=== PATIENT | male | born 1955 | race Hispanic/Latino ===

== ENCOUNTER 2017-04-02 13:03 | Emergency (ER) | payer OTHER ==
[2017-04-02 13:03] VITALS: BMI 23.5
[2017-04-02 13:15] VITALS: BP 127/89; PULSE 73; RESP 22; TEMP 98.2; O2SAT 98
--- NOTE | 2017-04-02 14:09 | ED PDOC ---
HPI: Psych/Substance Abuse Time Seen by Provider: 04/02/17 13:13 Chief Complaint (Nursing): Psychiatric Evaluation Chief Complaint (Provider): Leg pain, wants deotx from heroin ED Caveat: Acuity of Condition History Per: Patient History/Exam Limitations: no limitations Current Symptoms Are (Timing): Still Present Additional Complaint(s): Pt states he is also having pain in his legs. Pt states he was told he had a clot in his leg but left AMA. Pt states he did heroin yesterday and wants detox. On arrival to room patient states he wants to leave. Pt did not want screening exam. Past Medical History Reviewed: Historical Data, Nursing Documentation, Vital Signs Vital Signs: Last Vital Signs Temp 98.2 F 04/02/17 13:14 Pulse 73 04/02/17 13:14 Resp 22 04/02/17 13:14 BP 127/89 04/02/17 13:14 Pulse Ox 98 04/02/17 13:14 - Medical History PMH: Anxiety, Asthma, Parkinson's Disease Denies: Chronic Kidney Disease Comment Only: COPD (?) - Surgical History Surgical History: No Surg Hx - Family History Family History: States: Unknown Family Hx - Immunization History Hx Tetanus Toxoid Vaccination: No Hx Influenza Vaccination: No Hx Pneumococcal Vaccination: No - Home Medications Home Medications: Ambulatory Orders Medication Instructions Recorded Albuterol HFA [Ventolin HFA 90 1 puff IH Q6 PRN 12/07/16 mcg/actuation (8 g)] Carbidopa/Levodopa 1 each PO QID 12/07/16 [Carbidopa-Levodopa 10-100 Tab] Gabapentin [Neurontin] 300 mg PO TID 12/07/16 Meclizine HCl 50 mg PO BID 12/07/16 Mirtazapine [Remeron] 15 mg PO HS 12/07/16 Rotigotine [Neupro] 1 each TD DAILY 12/07/16 Selegiline HCl [Selegiline HCl] 5 mg PO BID 12/07/16 Tamsulosin HCl [Flomax] 0.4 mg PO DAILY 12/07/16 - Allergies Allergies/Adverse Reactions: Allergies Allergy/AdvReac Type Severity Reaction Status Date / Time No Known Allergies Allergy Verified 04/01/17 16:04 Review of Systems ROS Statement: Except As Marked, All Systems Reviewed And Found Negative Constitutional: Negative for: Fever, Chills Physical Exam - Reviewed Nursing Documentation Reviewed: Yes Vital Signs Reviewed: Yes - Physical Exam Appears: Positive for: Well, Non-toxic, No Acute Distress Head Exam: Positive for: ATRAUMATIC, NORMAL INSPECTION, NORMOCEPHALIC Skin: Positive for: Normal Color, Warm, DRY Eye Exam: Positive for: Normal appearance ENT: Positive for: Normal ENT Inspection Neck: Positive for: Normal Respiratory: Negative for: Accessory Muscle Use, Respiratory Distress Back: Positive for: Normal Inspection Extremity: Positive for: Normal ROM Neurologic/Psych: Positive for: Alert, Oriented - ECG O2 Sat by Pulse Oximetry: 98 Medical Decision Making Medical Decision Making: Discussed evaluation of DVT and getting US. Pt states he does not want to stay. I gave patient out-patient resources for detox and he states he does not want them. Pt than asks if he would walk around the hospital and collect money because he needs $30 to he can go to [facility] for detox. Disposition - Clinical Impression Clinical Impression: Heroin abuse, Leg pain - Patient ED Disposition Is Patient to be Admitted: No - Disposition Disposition: Left W/O Treatment Disposition Time: 14:12 Condition: STABLE
== END 2017-04-02 14:00 | disposition left against medical advice (07) ==
LOC: H.ER 13:03
DX: F11.10 Opioid abuse, uncomplicated (principal); M79.606 Pain in leg, unspecified; F41.9 Anxiety disorder, unspecified; G20 Parkinson's disease; J44.9 Chronic obstructive pulmonary disease, unspecified